=== PATIENT | male | born 1995 | race Caucasian/White ===

== ENCOUNTER 2021-01-19 18:12 | Emergency (ER) | payer BC, OTHER ==
[2021-01-19] MEDS ORDERED: IBUPROFEN 600 MG TAB PO STA (22:22)
[2021-01-19] MEDS ORDERED: MORPHINE SULFATE 4 MG/ML SYRINGE IVP STA (22:41)
[2021-01-19] MEDS ORDERED: SODIUM CHLORIDE 0.9% 1,000 ML IV SCH (22:45)
[2021-01-19 23:35] LABS: Basophils % (A) 0 %; Eosinophils # (A) 0.2 k/uL (0-0.7); Eosinophils % (A) 1 %; HCT 41.7 % (39.0-53.0); HGB 14.4 gm/dL (13.0-17.5); Lymphocytes # (A) 1.4 k/uL (1.0-4.8); Lymphocytes % (A) 9 %; MCHC 34.6 g/dL (31.0-37.0); MCV 86.7 fL (80.0-100.0); Mean Platelet Volume 8.2; Monocytes # (A) 0.8 k/uL (0-1.0); Monocytes % (A) 6 %; Neutrophils # (A) 12.7 k/uL (1.3-7.7); Neutrophils % (A) 83 %; Platelet Count 230 k/uL (150-450); RBC 4.81 m/uL (4.30-5.90); RDW 11.9 % (11.5-15.5); WBC 15.3 k/uL (3.8-10.6)
[2021-01-19 23:44] VITALS: BP 120/69; PULSE 91; RESP 16; TEMP 97.6
[2021-01-19 23:45] LABS: ALT 12 U/L (4-49); AST 20 U/L (17-59); African American GFR (CKD) >90 (>60 ml/min/1.73 sqM); Albumin 4.6 g/dL (3.5-5.0); Alkaline Phosphatase 76 U/L (38-126); Anion Gap 11 mmol/L; Blood Urea Nitrogen 15 mg/dL (9-20); Calcium 10.1 mg/dL (8.4-10.2); Carbon Dioxide 26 mmol/L (22-30); Chloride 101 mmol/L (98-107); Glucose 93 mg/dL (74-99); Non-African American GFR(CKD) >90 (>60 ml/min/1.73 sqM); Potassium 4.4 mmol/L (3.5-5.1); Sodium 138 mmol/L (137-145); Total Bilirubin 0.6 mg/dL (0.2-1.3); Total Protein 7.5 g/dL (6.3-8.2)
[2021-01-20] MEDS ORDERED: MORPHINE SULFATE 4 MG/ML SYRINGE IVP STA (00:13)
--- NOTE | 2021-01-20 00:23 | CT ---
EXAMINATION TYPE: CT soft tissue neck w con DATE OF EXAM: 01/19/2021 COMPARISON: None HISTORY: Neck Swelling CT DLP: 302.50 mGycm Automated exposure control for dose reduction was used. CONTRAST: Performed with IV Contrast, patient injected with 100 mL of Isovue 370. Images obtained from the level of the aortic arch to the top of the frontal sinuses with IV contrast. There is normal branching pattern of the great vessels. The upper lung florentino show a 2 cm infiltrate in the subpleural lateral right upper lobe. Thyroid gland is symmetric. Trachea appears normal. There is no superior mediastinal adenopathy. There is normal contrast opacification of carotid arteries and jugular veins. Submandibular salivary glands are symmetric. Parotid glands are symmetric. There is some mucosal thickening in the ethmoid a ir cells. Maxilla is intact. Nasal bone is intact. Orbital margins are intact. There is no evidence o f retro-orbital mass. Sella turcica appears normal. Prevertebral soft tissues appear intact. I see no cervical adenopathy. There is no pathologic fluid collection. The tonsils and adenoids are within normal limits. Epiglotti s is normal. The tongue appears normal. Subglottic trachea is normal. There is minimal subcutaneous d ensity over the anterior neck on the right side at the level of the mandible and consistent with mild cellulitis. The mandibular ring is intact. There is metal artifact from dental work. There are defects of the max illa and mandible apparently from wisdom tooth extraction. I see no definite bone destruction. There is no fracture. IMPRESSION: [place] tooth surgery. No fracture seen. Exam limited slightly by the metal artifact. No abscess ident ified. There is evidence for right-sided cellulitis at the angle of the mandible. Ethmoid sinusitis.
[2021-01-20] MEDS ORDERED: DEXAMETHASONE SOD PHOSPHATE 4 MG/ML 1 ML VIAL IV STA (00:29)
[2021-01-20] MEDS ORDERED: CLINDAMYCIN 150 MG CAP PO STA (00:29)
--- NOTE | 2021-01-20 00:30 | ED ---
ENT HPI - General Chief complaint: Dental/Oral Stated complaint: Facial Swelling Time Seen by Provider: 01/19/21 22:07 Source: patient Mode of arrival: ambulatory Limitations: no limitations - History of Present Illness Initial comments: 25-year-old male presenting today for chief complaint of facial swelling after wisdom tooth extraction. Patient states his face appears slightly red on the right side and he has swelling and pain after wisdom tooth removal 3 days ago. Patient states is somewhat difficult to open his mouth secondary to the pain he denies swollen below tongue difficulty swallowing or breathing. Patient is tolerating oral secretions upon arrival he appears in no distress she is afebrile deny any fevers. Denies chills or general malaise. Patient states it is tender in that area. Patient is no additional complaints upon arrival he appears nontoxic in no acute distress - Related Data Previous Rx's Medication Instructions Recorded Clindamycin [Cleocin] 450 mg PO Q8H 7 Days #63 capsule 01/20/21 Dexamethasone [Decadron] 6 mg PO DAILY 2 Days #2 tablet 01/20/21 Allergies Allergy/AdvReac Type Severity Reaction Status Date / Time Penicillins Allergy Rash/Hives Verified 01/19/21 19:47 Review of Systems ROS Statement: Those systems with pertinent positive or pertinent negative responses have been documented in the HPI. ROS Other: All systems not noted in ROS Statement are negative. Past Medical History Additional Past Medical History / Comment(s): TBI History of Any Multi-Drug Resistant Organisms: None Reported Additional Past Surgical History / Comment(s): craineotomy Past Psychological History: No Psychological Hx Reported Smoking Status: Never smoker Past Alcohol Use History: Occasional Past Drug Use History: None Reported General Exam - General Exam Comments Initial Comments: General: The patient is awake and alert, in no distress, and does not appear acutely ill. Eye: Pupils are equal, round and reactive to light, extra-ocular movements are intact. No nystagmus. There is normal conjunctiva bilaterally. No signs of icterus. Ears, nose, mouth and throat: There are moist mucous membranes and no oral lesions. Mild trismus and no tripoding no drooling patient is tolerating oral secretions. No swelling below the tongue. clots appear in place. significant right sided facial swelling, slightly extends towards angle of right mandible. Neck: The neck is supple, there is no tenderness or JVD. Cardiovascular: There is a regular rate and rhythm. No murmur, rub or gallop is appreciated. Respiratory: Lungs are clear to auscultation, respirations are non-labored, breath sounds are equal. No wheezes, stridor, rales, or rhonchi. Gastrointestinal: Soft, non-distended, non-tender abdomen without masses or organomegaly noted. There is no rebound or guarding present. Musculoskeletal: Normal ROM, no tenderness. Strength 5/5. Sensation intact. Pulses equal bilaterally 2+. Neurological: A&O x 3. CN II-XII intact grossly, There are no obvious motor or sensory deficits. Coordination appears grossly intact. Speech is normal. Skin: Skin is warm and dry and no rashes or lesions are noted. Psychiatric: Cooperative, appropriate mood & affect, normal judgment. Limitations: no limitations Course Vital Signs 01/19/21 01/19/21 19:47 23:43 Temperature 98.7 F 97.6 F Pulse Rate 101 H 91 Respiratory 18 16 Rate Blood Pressure 140/90 120/69 O2 Sat by Pulse 98 98 Oximetry Medical Decision Making - Medical Decision Making CT (-) deep space involvement. No swelling below tongue. tolerating oral secretions. pt evaluated by attending Dr. Kingsley who recommend steroids, abx and discharge with oral surgery f/u and return for wrosneing swelling/pain/fevers. patient agreeable and was discharged appearing well. - Lab Data Result diagrams: 01/19/21 22:49 01/19/21 22:49 Lab Results 01/19/21 01/19/21 Range/Units 22:49 22:49 WBC 15.3 H (3.8-10.6) k/uL RBC 4.81 (4.30-5.90) m/uL Hgb 14.4 (13.0-17.5) gm/dL Hct 41.7 (39.0-53.0) % MCV 86.7 (80.0-100.0) fL MCH 30.0 (25.0-35.0) pg MCHC 34.6 (31.0-37.0) g/dL RDW 11.9 (11.5-15.5) % Plt Count 230 (150-450) k/uL MPV 8.2 Neutrophils % 83 % Lymphocytes % 9 % Monocytes % 6 % Eosinophils % 1 % Basophils % 0 % Neutrophils # 12.7 H (1.3-7.7) k/uL Lymphocytes # 1.4 (1.0-4.8) k/uL Monocytes # 0.8 (0-1.0) k/uL Eosinophils # 0.2 (0-0.7) k/uL Basophils # 0.0 (0-0.2) k/uL Sodium 138 (137-145) mmol/L Potassium 4.4 (3.5-5.1) mmol/L Chloride 101 (98-107) mmol/L Carbon Dioxide 26 (22-30) mmol/L Anion Gap 11 mmol/L BUN 15 (9-20) mg/dL Creatinine 0.94 (0.66-1.25) mg/dL Est GFR (CKD-EPI)AfAm >90 (>60 ml/min/1.73 sqM) Est GFR (CKD-EPI)NonAf >90 (>60 ml/min/1.73 sqM) Glucose 93 (74-99) mg/dL Calcium 10.1 (8.4-10.2) mg/dL Total Bilirubin 0.6 (0.2-1.3) mg/dL AST 20 (17-59) U/L ALT 12 (4-49) U/L Alkaline Phosphatase 76 (38-126) U/L Total Protein 7.5 (6.3-8.2) g/dL Albumin 4.6 (3.5-5.0) g/dL Disposition Clinical Impression: Facial cellulitis Disposition: HOME SELF-CARE Condition: Good Instructions (If sedation given, give patient instructions): Toothache (ED) Additional Instructions: Please use medication as discussed. Please follow-up with dentist in 24-48 hours reutrn for worsening swelling, apply ice to face, take steroids/and antibiotic.. Please return to emergency room if the symptoms increase or worsen or for any other concerns. Prescriptions: Clindamycin [Cleocin] 450 mg PO Q8H 7 Days #63 capsule Dexamethasone [Decadron] 6 mg PO DAILY 2 Days #2 tablet Is patient prescribed a controlled substance at d/c from ED?: No Referrals: Koko Moran MD [Primary Care Provider] - 1-2 days Time of Disposition: 00:33
== END 2021-01-20 00:45 | disposition home or self-care (01) ==
LOC: EC 18:12
DX: L03.211 Cellulitis of face (principal); Z88.0 Allergy status to penicillin
CPT/HCPCS: 36415; 80053; 85025; 70491; 99283; 96374; 96375; 96376; 96361 ×2; J2270 ×2; J1100; Q9967